=== PATIENT | male | born 1995 | race Two or more races ===

== ENCOUNTER 2024-12-31 18:54 | Emergency (ER) | payer MEDICAID, OTHER ==
[~2024-12-31] VITALS: Ht 190.5 cm; Wt 113.4 kg
[2024-12-31 19:55] VITALS: BP 134/88; TEMP 98.3; O2SAT 99
[2024-12-31] MEDS ORDERED: TDAP [DIPH/PERTUSSIS/TET] 0.5 ML VIAL IM ONE (20:24)
[2024-12-31] MEDS: LIDOCAINE HCL/PF 1% 30 ML VIAL TP ONE (20:31)
[2024-12-31] MEDS: TDAP [DIPH/PERTUSSIS/TET] 0.5 ML VIAL IM ONE (20:31)
== END 2024-12-31 20:41 | disposition home or self-care (01) ==
LOC: ER 18:54
DX: S51.812A Laceration without foreign body of left forearm, initial encounter (principal); W22.03XA Walked into furniture, initial encounter; Y93.39 Activity, other involving climbing, rappelling and jumping off; Y92.89 Other specified places as the place of occurrence of the external cause; Y99.8 Other external cause status
CPT/HCPCS: 12005; 90471; 90715; 99283; J3490